=== PATIENT | female | born 1965 | race Caucasian/White ===

== ENCOUNTER → 2018-05-13 | Outpatient (CLI) | payer OTHER ==
--- NOTE | 2018-05-13 17:50 | MRI ---
EXAM DESCRIPTION: MRI right wrist CLINICAL HISTORY: Right wrist pain. Assess for osteonecrosis of the lunate COMPARISON: None. TECHNIQUE: Multiplanar, multisequence MR images of the right wrist FINDINGS: Mild negative ulnar variance. Intact triangular fibrocartilage complex Marrow edema over the majority of the lunate with a small region of cystic change along the dorsal ulnar aspect. The edema spares the subcortical trabecular bone distally and at the articulation with the scaphoid over small regions. Marrow edema spans about 1.3 cm anteroposterior by 1 cm transverse by 0.8 cm craniocaudal. Peripheral sclerotic/low signal intensity on T1 weighted images involves a smaller area which spans roughly 1 cm anteroposterior by 0.7 mm transverse by 0.9 cm craniocaudal. This region which is better delineated on T1-weighted images is compatible with sequela of osteonecrosis. No collapse of subchondral cortex No grade 4 chondrosis of the distal ulna or lunate No grade 4 chondrosis or focal osteochondral lesion elsewhere throughout the wrist No tenosynovitis. Carpal tunnel and Guyon's canal are normal IMPRESSION: Abnormal signal in the lunate, although atypical in location suggests sequela of osteonecrosis. No collapse. No secondary osteoarthritic changes elsewhere in the wrist Electronically signed by: Chris Schwab MD 05/13/2018 5:48 PM [employer]IE[employer] PHARMACIST
== END ==
LOC: MRI 11:28
PROVIDERS: ATTEND Physician Assistant
DX: M25.531 Pain in right wrist (principal)

== ENCOUNTER → 2018-08-29 | Outpatient (CLI) | payer OTHER ==
--- NOTE | 2018-08-30 13:10 | MRI ---
EXAM DESCRIPTION: MRI left wrist CLINICAL HISTORY: Kienbock's disease. Wrist pain COMPARISON: Radiograph 08/19/2018 TECHNIQUE: Multiplanar, multisequence MR images of the left wrist FINDINGS: Region of marrow edema along the dorsal ulnar side of the lunate proximal articular surface. Marrow edema spans about 7 mm anteroposterior by 6 mm transverse. A tiny cyst with surrounding edema. No linear trabecular or cortical fracture. Marrow signal otherwise normal in the lunate. Neutral ulnar variance. No high-grade chondrosis/chronic osteochondral lesion of the triquetrum or distal ulnar articular surface. Thin central TFC without a diagnostic central defect. No fluid in the distal radioulnar joint No osteochondral lesion radiocarpal or midcarpal. A cyst arises at the capsule/ligament attachment along the volar surface of the triquetrum below the margin of the pisiform triquetrum articulation No osteochondral lesion midcarpal or carpometacarpal No tenosynovitis or intrinsic tendon signal abnormality. Carpal tunnel and Guyon's canal are normal IMPRESSION: Region of marrow edema along the dorsal ulnar side of the lunate, nonspecific but likely originating from overlying chondrosis. This is not the imaging appearance to diagnose Kienbock's disease. Neutral ulnar variance with thin central TFC. No other findings of chronic ulnar impaction syndrome Electronically signed by: Chris Schwab MD 08/30/2018 1:08 PM CDT
== END ==
LOC: MRI 13:48
PROVIDERS: ATTEND Orthopaedic Surgery
DX: M93.1 Kienbock's disease of adults (principal)